=== PATIENT | female | born 1955 | race Caucasian/White ===

== ENCOUNTER 2016-08-14 13:50 | Emergency (ER) | payer MEDICARE ==
[2015-04-06 12:05] VITALS: BMI 25.0
[~2016-08-14 13:50] MED LIST: ALDACTONE25 MG PO; AMOXICILLIN500 M1 PO; BAYER CHEWABLE81 MG PO; GEMFIBROZIL600 MG PO; HYDROCODONE-APA1 TAB PO; MULTIPLE VITAMI1 TA1 PO; NORVASC10 MG PO; PROZAC20 MG PO; ROBAXIN-750750 MG PO; SOMA350 MG PO; TIROSINT100 MCG PO; TOPROL XL100 MG PO; VALIUM5 MG PO; ZOVIRAX400 MG PO
== END 2016-08-14 14:43 | disposition left against medical advice (07) ==
LOC: D.ER 13:50
DX: R51 Headache (principal)

== ENCOUNTER 2016-08-28 10:46 | Emergency (ER) | payer MEDICARE ==
[2015-04-06 12:05] VITALS: BMI 25.0
[2016-08-28 12:35] LABS: BASOPHILS 0.2 % (0.0-2.0); EOSINOPHILS 0 % (0-7); HEMATOCRIT 44.7 % (36.0-48.0); HEMOGLOBIN 15.7 g/dL (12-16); IMMATURE GRANULOCYTES 0.2 % (0-5); LYMPHOCYTES 11.3 % (15-50); MCH 30.5 pg (26.0-34.0); MCHC 35.1 g/dL (31.0-37.0); MEAN PLATELET VOLUME 11.1 fL (7.4-10.4); MONOCYTES 7.2 % (2-11); NEUTROPHILS 81.1 % (40-80); RBC 5.14 10x6/uL (4.00-5.40); RDW 13.4 % (11.5-14.5); WBC 8.6 10x3/uL (4.8-10.8)
[2016-08-28 12:37] LABS: PLATELET COUNT 233 10x3/uL (130-400)
[2016-08-28 13:48] LABS: APPEARANCE HAZY (CLEAR); COLOR YELLOW (YELLOW); LEUKOCYTE ESTERASE 1+ (NEGATIVE); SPECIFIC GRAVITY 1.015 (1.005-1.020)
[2016-08-28 13:49] LABS: BACTERIA MODERATE /hpf (NONE SEEN); BILIRUBIN NEGATIVE (NEGATIVE); EPITHELIAL CELLS 0-5 /hpf (0-5); GLUCOSE NEGATIVE (NEGATIVE); KETONE MODERATE mg/dL (NEGATIVE); MUCUS <1+ /lpf (NONE SEEN); NITRITE NEGATIVE (NEGATIVE); PROTEIN NEGATIVE (NEGATIVE); UROBILINOGEN NORMAL (NORMAL); WHITE CELLS - URINE 0-5 /hpf (0-5)
[2016-08-28 13:52] LABS: ALBUMIN 3.8 g/dL (3.4-5.0); ALKALINE PHOSPHATASE 61 U/L (46-116); ALT (SGPT) 20 U/L (10-68); BILIRUBIN - TOTAL 0.33 mg/dL (0.2-1.3); CALC OSMOLALITY 279 mosm/kg (275-300); CALCIUM 9.2 mg/dL (8.5-10.1); CARBON DIOXIDE 23.3 mmol/L (21.0-32.0); CHLORIDE - SERUM 102 mmol/L (98-107); CREATININE - SERUM 0.8 mg/dL (0.6-1.3); GLUCOSE 126 mg/dL (74-106); LIPASE 160 U/L (73-393); MAGNESIUM - SERUM 1.7 mg/dL (1.8-2.4); POTASSIUM - SERUM 3.7 mmol/L (3.5-5.1); PROTEIN - SERUM 7.4 g/dL (6.4-8.2); SODIUM 139 mmol/L (136-145); UREA NITROGEN 12 mg/dL (7-18); eGFR NON AFRICAN AMERICAN 78 mL/min (90-120)
== END 2016-08-28 17:30 | disposition home or self-care (01) ==
LOC: D.ER 10:46
PROVIDERS: Emergency Medicine
DX: R11.10 Vomiting, unspecified (principal); K52.9 Noninfective gastroenteritis and colitis, unspecified

== ENCOUNTER 2016-09-04 17:46 | Observation (INO) | payer MEDICARE ==
[~2016-09-04] VITALS: Ht 165.1 cm; Wt 57.5 kg
[2016-09-04] MEDS ORDERED: TOPROL XL100 MG PO (18:06)
[2016-09-04] MEDS ORDERED: PREMARIN0.625 MG PO (18:06)
[2016-09-04] MEDS ORDERED: SYNTHROID100 MCG PO (18:06)
[2016-09-04] MEDS ORDERED: AMOXICILLIN500 M1 PO (18:07)
[2016-09-04] MEDS ORDERED: NORVASC10 MG PO (18:07)
[2016-09-04] MEDS ORDERED: PROZAC20 MG PO (18:07)
[2016-09-04] MEDS ORDERED: HYDROCODONE-APA1 TAB PO (18:08)
[2016-09-04] MEDS ORDERED: ALDACTONE25 MG PO (18:08)
[2016-09-04] MEDS ORDERED: FLUTICASONE PRO16 GM NASAL (18:08)
[2016-09-04] MEDS ORDERED: BACLOFEN10 MG PO (18:09)
[2016-09-04] MEDS ORDERED: ZANAFLEX2 M1 PO (18:10)
--- NOTE | 2016-09-04 18:38 | NUR ---
RECIVED FROM ADMISSSION. ALERT ORIENTED. DENIES ANY PAIN. IV STARTED TO RIGHT FA WITH D5 1/2 BOLUS. FAMILY AT BEDSIDE. . WILL MONITOR
[2016-09-04 19:09] LABS: BASOPHILS 0.2 % (0.0-2.0); EOSINOPHILS 1.5 % (0-7); HEMATOCRIT 43.8 % (36.0-48.0); HEMOGLOBIN 15.5 g/dL (12-16); IMMATURE GRANULOCYTES 0.4 % (0-5); MCH 30.3 pg (26.0-34.0); MCHC 35.4 g/dL (31.0-37.0); MCV 85.5 fL (80.0-100.0); MEAN PLATELET VOLUME 11.1 fL (7.4-10.4); MONOCYTES 10.3 % (2-11); NEUTROPHILS 44.6 % (40-80); RBC 5.12 10x6/uL (4.00-5.40); RDW 12.8 % (11.5-14.5); WBC 8.3 10x3/uL (4.8-10.8)
[2016-09-04 19:10] LABS: PLATELET COUNT 286 10x3/uL (130-400)
[2016-09-04 19:32] LABS: ALBUMIN 3.7 g/dL (3.4-5.0); ALKALINE PHOSPHATASE 57 U/L (46-116); ALT (SGPT) 28 U/L (10-68); BILIRUBIN - TOTAL 0.72 mg/dL (0.2-1.3); CALC OSMOLALITY 285 mosm/kg (275-300); CARBON DIOXIDE 27.9 mmol/L (21.0-32.0); CHLORIDE - SERUM 102 mmol/L (98-107); CREATININE - SERUM 0.8 mg/dL (0.6-1.3); GLUCOSE 150 mg/dL (74-106); PROTEIN - SERUM 7.3 g/dL (6.4-8.2); SODIUM 141 mmol/L (136-145); UREA NITROGEN 18 mg/dL (7-18); eGFR NON AFRICAN AMERICAN 78 mL/min (90-120)
--- NOTE | 2016-09-04 19:38 | NUR ---
RESUMED CARE OF PT, LYING IN BED RESPIRATIONS EVEN AND UNLABORED ON ROOM AIR. RIGHT FOREARM INFUSING D5 1/2 NS @ 200. PLAN OF CARE DISCUSSED. CALL LIGHT IN REACH. WILL CONTINUE TO MONITOR. SEE NURSE ASESSMENT.
[2016-09-04 20:00] VITALS: BP 130/88
[2016-09-05] VITALS: BP 124/71
[2016-09-05 04:00] VITALS: BP 116/65
--- NOTE | 2016-09-05 08:01 | NUR ---
ASSESSMENT COMPLETED. DENIES ANY NAUSEA, VOMITING OR DIARRHEA. PT IS ON ROOM AIR . IV TO RIGHT FORE ARM WITH D51/2 NS AT 125. WILL MONITOR
[2016-09-05 08:22] VITALS: BP 116/72
--- NOTE | 2016-09-05 10:19 | NUR ---
RESTING QUIETLY NAD NOTED
[2016-09-05 12:25] VITALS: Ht 165.1 cm; Wt 57.5 kg
[2016-09-05 12:42] VITALS: BP 136/74
--- NOTE | 2016-09-05 12:47 | NUR ---
PT WALKS OTEN. DOES NOT WANT SCDS
--- NOTE | 2016-09-05 15:42 | NUR ---
PT LAYING QUIETLY WITH EYE CLOSED. FAMILY AT BEDSIDE. WILL MONITOR. NO DIARRHEA OR NAUSEA.
[2016-09-05 16:55] VITALS: BP 125/76
--- NOTE | 2016-09-05 18:44 | NUR ---
IV INFUSING WELL, DENIES ANY NEEDS. CALL LIGHT IN REACH WITH SR UP. WILL MONITOR
--- NOTE | 2016-09-05 19:28 | NUR ---
INITIAL ROUNDS COMPLETED. PT DENIES ANY DISCOMFORT. WILL CONITNUE TO MONITOR.
[2016-09-05 21:31] VITALS: BP 134/95
--- NOTE | 2016-09-05 22:09 | NUR ---
KCL 20 MEQ IN 120CC OF CRANBERRY JUICE GIVEN PER ELECTROLYTE SLIDING SCALE AT 1940 HRS. ASESSMENT COMPLETED AT 2005 HRS. VSS. IV TO RFA WITH D51/2NS AT 125CC/HR. IV PATENT. LUNGS CTA. PM MEDS GIVEN INCLUDING 3RD DOSE OF KCL 20MEQ IN 120CC OF CRANBERRY JICE PER ELECTROLYTE PROTOCOL. PT CURRETNLY RESTING WITH EYES CLOSED. RESP EVEN AND REGULAR. SR UP X2, CALL LIGHT WITHIN REACH.
--- NOTE | 2016-09-06 00:29 | NUR ---
PT AWAKE; DENIES ANY DISCOMFORT. WILL CONTINUE TO MONITOR.
--- NOTE | 2016-09-06 02:12 | NUR ---
PT RESTING WITH EYES CLOSED. RESP EVEN AND REGULAR. SR UP X2, CALL LIGHT WITHN REACH.
--- NOTE | 2016-09-06 04:19 | NUR ---
PT AWAKE; DENIES ANY DISCOMFORT. WILL CONTINUE TO MONITOR.
[2016-09-06 05:31] LABS: BASOPHILS 0.6 % (0.0-2.0); EOSINOPHILS 3.8 % (0-7); HEMATOCRIT 38.9 % (36.0-48.0); HEMOGLOBIN 13.1 g/dL (12-16); IMMATURE GRANULOCYTES 0.5 % (0-5); MCH 29.4 pg (26.0-34.0); MCHC 33.7 g/dL (31.0-37.0); MCV 87.2 fL (80.0-100.0); MEAN PLATELET VOLUME 11.3 fL (7.4-10.4); MONOCYTES 13.1 % (2-11); PLATELET COUNT 295 10x3/uL (130-400); RBC 4.46 10x6/uL (4.00-5.40); RDW 12.9 % (11.5-14.5); WBC 6.3 10x3/uL (4.8-10.8)
[2016-09-06 05:53] VITALS: BP 119/83
[2016-09-06 05:54] LABS: ALBUMIN 2.8 g/dL (3.4-5.0); ALKALINE PHOSPHATASE 55 U/L (46-116); CALCIUM 8.4 mg/dL (8.5-10.1); CARBON DIOXIDE 24.7 mmol/L (21.0-32.0); CHLORIDE - SERUM 106 mmol/L (98-107); CREATININE - SERUM 0.8 mg/dL (0.6-1.3); GLUCOSE 122 mg/dL (74-106); PROTEIN - SERUM 5.8 g/dL (6.4-8.2); SODIUM 139 mmol/L (136-145); eGFR NON AFRICAN AMERICAN 78 mL/min (90-120)
[2016-09-06 06:07] LABS: ALT (SGPT) 20 U/L (10-68); CALC OSMOLALITY 275 mosm/kg (275-300); POTASSIUM - SERUM 3.5 mmol/L (3.5-5.1); UREA NITROGEN 4 mg/dL (7-18)
--- NOTE | 2016-09-06 06:34 | NUR ---
VSS THROUGHOUT NIGHT. PT DENIED ANY DISCOMFORT. AM K+ 3.5. KCL 40 MEQ IN 180CC OF CRANBERRY JUICE GVEN PER PROTOCOL. NEEDS MET; WILL CONTINUE TO MONITOR.
--- NOTE | 2016-09-06 07:33 | NUR ---
RECEIVED PT REPORT. WILL CONTINUE PLAN OF CARE. NO OTHER NEEDS AT THIS TIME. WILL CONTINUE TO MONITOR.
--- NOTE | 2016-09-06 08:21 | NUR ---
PT IS ALERT. ASSESSMENT DONE PER FLOWSHEET. NO OTHER NEEDS AT THIS TIME. WILL CONTINUE TO MONITOR.
[2016-09-06 09:19] VITALS: BP 111/71
[2016-09-06 12:21] VITALS: BP 109/67
[2016-09-06] MEDS ORDERED: FLAGYL500 MG PO (14:15)
[2016-09-06 15:49] VITALS: BP 93/61
[2016-09-13 03:10] LABS: OVA + PARASITE EXAM Final report (())
== END 2016-09-06 16:58 | disposition home or self-care (01) ==
LOC: D.M2 17:46 → OBSVTIME 17:47 → D.M2 09-06 16:58
PROVIDERS: Family Medicine; ADMIT Family Medicine
DX: R10.9 Unspecified abdominal pain (principal); R19.7 Diarrhea, unspecified; R11.2 Nausea with vomiting, unspecified

== ENCOUNTER → 2018-05-04 12:55 | Outpatient (CLI) | payer MEDICARE ==
[~2018-05-04 12:55] MED LIST changes: +BACLOFEN10 MG PO; +FLAGYL500 MG PO; +FLUTICASONE PRO16 GM NASAL; +PREMARIN0.625 MG PO; +SYNTHROID100 MCG PO; +ZANAFLEX2 M1 PO
== END | disposition home or self-care (01) ==
LOC: D.CT 12:55
DX: J01.90 Acute sinusitis, unspecified (principal)

== ENCOUNTER → 2018-05-28 14:49 | Outpatient (CLI) | payer MEDICARE | END | disposition home or self-care (01) | LOC: D.MRI 14:49 | DX: R93.0 Abnormal findings on diagnostic imaging of skull and head, not elsewhere classified (principal) ==